=== PATIENT | male | born 1950 | race Caucasian/White ===

== ENCOUNTER 2016-11-22 11:07 | Day surgery (SDC) | payer OTHER ==
[~2016-11-22] VITALS: Ht 180.3 cm; Wt 102.5 kg
[~2016-11-22 11:07] MED LIST: RIVA20TA PO; SIMV10TA3 PO
[2016-11-22] MEDS ORDERED: LACTATED RINGERS 1,000 ML IV SCH (12:09)
[2016-11-22 12:27] VITALS: BP 138/89
[2016-11-22] MEDS ORDERED: FENTANYL PF 100 MCG/2ML ONE ×3 (13:55→15:56)
[2016-11-22] MEDS ORDERED: HYDROmorphone 1 MG/ML, 1ML IV PRN (14:00)
[2016-11-22] MEDS ORDERED: hydrALAzine 20 MG/ML, 1ML IV PRN (14:00)
[2016-11-22] MEDS ORDERED: ACETAMINOPHEN 325 MG TABLET PO PRN (14:00)
[2016-11-22] MEDS ORDERED: HYDROcodone/APAP 7.5-325MG/15ML UDC PO PRN (14:00)
[2016-11-22] MEDS ORDERED: ALBUTEROL/IPRATROPIUM 2.5MG/0.5MG, 3 ML NPPB PRN (14:00)
[2016-11-22] MEDS ORDERED: METOPROLOL 1 MG/ML, 5ML IV PRN (14:00)
[2016-11-22] MEDS ORDERED: METOPROLOL 1 MG/ML, 5ML ONE (14:12)
[2016-11-22] MEDS ORDERED: PHENYLEPHRINE 10 MG/ML ONE (14:12)
[2016-11-22] MEDS ORDERED: DEXAMETHASONE 4 MG/ML, 1ML ONE (14:12)
[2016-11-22] MEDS ORDERED: PROPOFOL 10 MG/ML, 20ML ONE (14:12)
[2016-11-22] MEDS ORDERED: OXYcodone 5 MG/5 ML ORAL.SOL UDC ONE (15:56)
[2016-11-22] MEDS ORDERED: ONDANSETRON 2MG/ML, 2ML ONE (15:56)
[2016-11-22] MEDS ORDERED: ONDANSETRON 2MG/ML, 2ML IVPush PRN (16:00)
[2016-11-22] MEDS ORDERED: HYDROcodone/APAP 7.5-325MG/15ML UDC ONE (16:04)
[2016-11-22] MEDS: FENTANYL PF 100 MCG/2ML IV PRN ×2 (16:07→16:43)
[2016-11-22] MEDS ORDERED: OMNIPAQUE 350 MG/ML, 50 ML BOTTLE ONE (16:13)
== END 2016-11-22 18:25 | disposition home or self-care (01) ==
LOC: OUT 11:07
PROVIDERS: ATTEND Urology
DX: N20.1 Calculus of ureter (principal); Z86.718 Personal history of other venous thrombosis and embolism; I25.10 Atherosclerotic heart disease of native coronary artery without angina pectoris; I25.2 Old myocardial infarction; Z86.72 Personal history of thrombophlebitis; M19.90 Unspecified osteoarthritis, unspecified site; Z85.820 Personal history of malignant melanoma of skin; Z79.01 Long term (current) use of anticoagulants; E78.5 Hyperlipidemia, unspecified; Z98.890 Other specified postprocedural states; Z88.6 Allergy status to analgesic agent
CPT/HCPCS: 52356; 74420; 93005; C1726; C1769; C2617; C2625; J1100; J2370; J2405; J2704; J3010; J7120; Q9967